=== PATIENT | male | born 1995 | race Two or more races ===

== ENCOUNTER 2021-05-21 10:09 | Emergency (ER) | payer SELFPAY ==
[~2021-05-21] VITALS: Ht 172.7 cm; Wt 81.6 kg
[2021-05-21] MEDS ORDERED: MORPHINE SULFATE INJ 4 MG/ML DISP.SYRIN ONE (10:45)
[2021-05-21] MEDS ORDERED: diphenhydrAMINE HCL 50 MG/ML VIAL ONE (10:45)
[2021-05-21] MEDS ORDERED: METOCLOPRAMIDE HCL 10 MG/2 ML VIAL ONE (10:46)
[2021-05-21] MEDS: diphenhydrAMINE HCL 50 MG/ML VIAL IV ONE (10:47)
[2021-05-21] MEDS: IV NS 0.9% 1,000 ML BAG IV ONE (10:47)
[2021-05-21] MEDS: METOCLOPRAMIDE HCL 10 MG/2 ML VIAL IV ONE (10:47)
[2021-05-21] MEDS: MORPHINE SULFATE INJ 10 MG/ML DISP.SYRIN IV ONE (10:48)
--- NOTE | 2021-05-21 10:48 | NUR ---
BIBS FOR C/O NAUSEA AND VOMITING X 3 DAYS. UNABLE TO KEEP FOOD IN. ABDOMINAL PAIN 4/10. ABDOMEN SOFT AND NON-DISTENDED. WILL CONTINUE TO MONITOR THE PATIENT.
[2021-05-21 10:50] LABS: BASOPHILS # (AUTO) 0.1 K/uL (0.0-0.2); BASOPHILS % (AUTO) 0.5 % (0.0-2.0); EOSINOPHILS % (AUTO) 0.2 % (0.0-6.0); HEMATOCRIT 49 % (39-51); HEMOGLOBIN 16.3 g/dL (13.5-17.5); LYMPHOCYTES # (AUTO) 1.5 K/uL (0.8-4.8); LYMPHOCYTES % (AUTO) 13.7 % (20.0-44.0); MEAN CORPUSCULAR HGB CONC 34 g/dl (31.0-36.0); MEAN CORPUSCULAR VOLUME 90 fL (80-96); MONOCYTES # (AUTO) 0.8 K/uL (0.1-1.30); MONOCYTES % (AUTO) 7.5 % (2.0-12.0); NEUTROPHILS # (AUTO) 8.8 K/uL (1.8-8.9); NEUTROPHILS % (AUTO) 78.1 % (43.0-81.0); PLATELET COUNT (AUTO) 241 K/uL (150-450); WHITE BLOOD COUNT (AUTO) 11.3 K/uL (4.3-11.0)
--- NOTE | 2021-05-21 10:54 | NUR ---
DOBBY LOOM WEAVER AT THE BEDSIDE FOR ECG
[2021-05-21 11:00] LABS: CALCIUM, SERUM 9.7 mg/dL (8.5-10.1); CREATININE 1.3 mg/dL (0.6-1.3); POTASSIUM 3.9 mmol/L (3.5-5.1)
[2021-05-21 11:24] LABS: ALBUMIN 4.9 g/dL (3.4-5.0); BILIRUBIN,DIRECT 0.2 mg/dL (0.0-0.2); BILIRUBIN,TOTAL 1.3 mg/dL (0.2-1.0); TOTAL PROTEIN, SERUM 8.3 g/dL (6.4-8.2)
[2021-05-21] MEDS ORDERED: HALOPERIDOL LACTATE INJ 5 MG/ML VIAL ONE (12:02)
[2021-05-21] MEDS: HALOPERIDOL LACTATE INJ 5 MG/ML VIAL IVP ONE (12:03)
[2021-05-21] MEDS ORDERED: ONDA4TAB5 PO (12:26)
--- NOTE | 2021-05-21 12:26 | NUR ---
PO CHALLENGE DONE, THE PATIENT TOLERATED WELL. DENIES N/V. DENIES ABDOMINAL PAIN.
--- NOTE | 2021-05-21 12:28 | NUR ---
Patient discharged to home in stable condition. Written and verbal after care instructions given. Patient verbalizes understanding of instruction.
[2021-05-21 12:29] VITALS: BP 134/76
== END 2021-05-21 12:29 | disposition home or self-care (01) ==
LOC: ER 10:15
DX: R11.2 Nausea with vomiting, unspecified (principal); F12.90 Cannabis use, unspecified, uncomplicated; R10.13 Epigastric pain
CPT/HCPCS: 36415; 71045; 80048; 80076; 83690; 85025; 93005; 96361; 96374; 96375; 99285; J1200; J1630; J2270; J2765; J7030

== ENCOUNTER 2025-01-03 15:24 | Emergency (ER) | payer MEDICAID, OTHER ==
[~2025-01-03] VITALS: Ht 177.8 cm; Wt 88.5 kg
[~2025-01-03 15:24] MED LIST: ONDA4TAB5 PO
[2025-01-03 15:28] VITALS: BP 125/88; TEMP 98.3; O2SAT 99
[2025-01-03] MEDS ORDERED: HYDR-4303 PO (16:34)
[2025-01-03] MEDS ORDERED: CYCL5TAB PO (16:34)
[2025-01-03] MEDS ORDERED: HYDROCODONE/APAP 5/325MG TABLET ONE (16:36)
[2025-01-03] MEDS: HYDROCODONE/APAP 5/325MG TABLET PO ONE (16:39)
[2025-01-03] MEDS ORDERED: HYDR-3980 PO (16:54)
[2025-01-03] MEDS ORDERED: HYDR-3972 PO (18:12)
[2025-01-04] MEDS ORDERED: CYCL5TAB PO (16:43)
[2025-01-04] MEDS ORDERED: HYDR-3972 PO (16:43)
== END 2025-01-03 17:30 | disposition home or self-care (01) ==
LOC: ER 15:34
DX: S83.8X1A Sprain of other specified parts of right knee, initial encounter (principal); W18.39XA Other fall on same level, initial encounter; Y93.67 Activity, basketball; Y92.39 Other specified sports and athletic area as the place of occurrence of the external cause; Y99.8 Other external cause status